=== PATIENT | female | born 1990 | race Caucasian/White ===

== ENCOUNTER 2018-07-18 13:25 | Outpatient (CLI) | payer MEDICAID ==
[~2018-07-18] VITALS: Ht 152.4 cm; Wt 87.2 kg
[2018-07-18 13:56] VITALS: Ht 152.4 cm; Wt 87.2 kg
[2018-07-18 13:59] VITALS: BP 121/61; PULSE 87; RESP 16
--- NOTE | 2018-07-18 14:11 | PN ---
Triage Information Date/Time 07/18/2018 Reason for visit: she reports good FM. she denies contractions, visual changes, headache, RUQ pain, LOF per vagina or vaginal bleeding. Weeks of Gestation 36.4 /Para G1 Diabetes: none Hypertention: none Objective Vital Signs Date Temp Pulse Resp B/P (MAP) Pulse Ox O2 O2 Flow FiO2 Time Delivery Rate 07/18/18 98.7 87 16 121/61 Room Air 13:59 (81) Contractions: None Exam NAD Abd: soft, gravid, not tender Ext: no edema Disposition: Discharge Assessment/Plan IUP at 36.4 weeks r/o IUGR plan is NST and MONICA Guzman MD Jul 18, 2018 14:11
== END 2018-07-18 15:55 | disposition home or self-care (01) ==
LOC: OBT 13:25 → L-D 13:27 → OBT 15:55
PROVIDERS: ATTEND Specialist
DX: O36.5930 Maternal care for other known or suspected poor fetal growth, third trimester, not applicable or unspecified (principal); Z3A.36 36 weeks gestation of pregnancy
CPT/HCPCS: 76815; 76818; Z7500; G0463

== ENCOUNTER 2018-08-02 08:26 | Inpatient (IN) | payer MEDICAID ==
[~2018-08-02] VITALS: Ht 152.4 cm; Wt 87.0 kg
[2018-08-02 08:40] VITALS: Ht 152.4 cm; Wt 87.0 kg
[2018-08-02 08:46] VITALS: BP 122/79
[2018-08-02] MEDS ORDERED: PREN1TAB71 PO (08:50)
--- NOTE | 2018-08-02 08:53 | HP ---
Date/Time of Note Date/Time of Note DATE: 08/02/18 TIME: 08:48 OB - History Hx of Present Free Text/Dictation 28 YO G1 with EDC 08/11/2018 with IUP at 38.5 weeks who reported to Triage due to painful contractions and small amount of spotting. she denies LOF per vagina. she reports good FM. she denies headache, visual changes or RUQ pain. Care: Good Care Ultrasounds: Normal mid trimester US Obstetrical Complications: None Medical Complications: None Past Family/Social History * Past Medical, Surgical, Family and Obstetric Histories reviewed from chart. OB Admission Exam Vital Signs Vital Signs Vital Signs Date Temp Pulse Resp B/P (MAP) Pulse Ox O2 O2 Flow FiO2 Time Delivery Rate 08/02/18 97.6 122/79 08:46 (93) Physical Exam HEENT: WNL Heart: Rhythm Normal Lungs: Clear, Equal Abdomen: WNL Extremities: Normal Reflexes: Normal Cervical Dilatation: 1cm Effacement: 50% Station: -3 Membranes: Intact OB Assessment/Plan Other Assessment: IUP at 38.5 weeks small amount of spotting is due to cervical change, but it does not seem like she is labor. patient is motivated to have and she would like to be admitted in active labor. Plan: Expectant Management Other plan: will observe and reexamine cervix. if n significant change then may be discharged with labor precautions and [facility] Sono MONICA LUX MD Aug 02, 2018 08:53
[2018-08-02] MEDS ORDERED: IBUPROFEN 600 MG TAB PO PRN (11:30)
[2018-08-02] MEDS ORDERED: BUTORPHANOL 2 MG INJ IV PRN (11:30)
[2018-08-02] MEDS ORDERED: CARBOPROST 250 MCG INJ IM PRN (11:30)
[2018-08-02] MEDS ORDERED: MISOPROSTOL 200 MCG TAB PR PRN (11:30)
[2018-08-02] MEDS ORDERED: METHYLERGONOVINE 0.2 MG INJ IM PRN (11:30)
[2018-08-02] MEDS ORDERED: LIDOCAINE 1% (MPF) 30 ML INJ INJ PRN (11:30)
[2018-08-02] MEDS ORDERED: OXYTOCIN 30 UNITS/LR 500 ML IV SCH ×2 (11:30)
[2018-08-02] MEDS ORDERED: OXYTOCIN 30 UNITS/LR 500 ML IV PRN (11:30)
[2018-08-02] MEDS: LACTATED RINGER'S 1,000 ML IV SCH ×4 (11:43→23:43)
[2018-08-02] MEDS: MISOPROSTOL 50 MCG CAPSULE PO SCH ×2 (12:04→16:01)
--- NOTE | 2018-08-02 20:13 | PREAC ---
Date/Time of Note Date/Time of Note DATE: 08/02/18 TIME: 20:13 Anesthesia Eval and Record Evaluation Time Pre-Procedure Interview DATE: 08/02/18 TIME: 20:13 Age 28 Sex female NPO: 8 hrs Preoperative diagnosis labor pain Planned procedure labor epidural Past Medical History Past Medical History: None Surgery & Anesthesia Issues No known issue Meds Anticoagulation: No Beta Benjamín within 24 hr: No Reason Beta Benjamín not given: Pt. not on B-Benjamín Reported Medications Vit No.130/Iron/FA ( Tablet) 1 Each Tablet, 1 EACH PO 08/02/18 Current Medications Lactated Ringer's 1,000 ml @ 125 mls/hr Q8H IV Last administered on 08/02/18at 19:59; Admin Dose 125 MLS/HR; Start 08/02/18 at 11:13 Butorphanol Tartrate (Stadol) 2 mg Q2H PRN IV .PAIN; Start 08/02/18 at 11:30 Lidocaine (Xylocaine 1% (Mpf)) 30 ml ONCE PRN INJ .EPISIOTOMY; Start 08/02/18 at 11:30 Oxytocin/Lactated Ringer's 500 ml @ 500 mls/hr ONCE POST IV ; Start 08/02/18 at 11:30 Oxytocin/Lactated Ringer's 500 ml @ 125 mls/hr POST IV ; Start 08/02/18 at 11:30 Ibuprofen (Motrin) 600 mg ONCE PRN PO .PAIN 1-5; Start 08/02/18 at 11:30 Oxytocin/Lactated Ringer's 500 ml @ 0 mls/hr ONCE PRN IV .VAGINAL BLEEDING; Start 08/02/18 at 11:30 Methylergonovine Maleate (Methergine) 0.2 mg ONCE PRN IM .VAGINAL BLEEDING; Start 08/02/18 at 11:30 Carboprost Tromethamine (Hemabate) 250 mcg ONCE PRN IM .VAGINAL BLEEDING; Start 08/02/18 at 11:30 Misoprostol (Cytotec) 1,000 mcg ONCE PRN FL .VAGINAL BLEEDING; Start 08/02/18 at 11:30 Misoprostol (Cytotec 50 Mcg Capsule) 50 mcg Q4 PO Last administered on 08/02/18at 16:01; Admin Dose 50 MCG; Start 08/02/18 at 13:00 Meds reviewed: Yes Allergies Coded Allergies: No Known Drug Allergies (Verified Allergy, Unknown, 08/02/18) Allergies Reviewed: Yes Labs/Studies Labs Reviewed: Reviewed by anesthesiologist Result Diagram: 08/02/18 1106 Laboratory Tests 08/02/18 11:06 Blood Bank Test 08/02/18 11:06 Antibody Screen NEGATIVE Blood Type O POSITIVE Rh Immune Globulin Candidate NO test: Positive Pre-procedure Exam Last vitals Vital Signs Date Temp Pulse Resp B/P (MAP) Pulse Ox O2 O2 Flow FiO2 Time Delivery Rate 08/02/18 97.6 122/79 08:46 (93) Airway: Adequate mouth opening, Adequate thyromental dist Mallampati: Mallampati III Teeth: Normal Lung: Normal Heart: Normal ASA Physical Status ASA physical status: 2 Emergency: None Planned Anesthetic Neuraxial: Epidural Planned Pain Management Epidural, Parenteral pain med Pre-operative Attestations Prior to commencing anesthesia and surgery, the patient was re-evaluated, there was verification of: *The patient's identity *The results of appropriate recent lab work and preoperative vital signs *The above evaluation not changing prior to induction *Anesthetic plan, risk benefits, alternative and complications discussed with patient/family; questions answered; patient/family understands, accepts and wishes to proceed. CARMEN CINTRON MD Aug 02, 2018 20:13
[2018-08-02] MEDS ORDERED: HYDROmorphONE 0.5 MG/0.5 ML SYG IV PRN ×2 (20:30)
[2018-08-02] MEDS ORDERED: ZOLPIDEM 5 MG TAB PO PRN (20:30)
[2018-08-02] MEDS ORDERED: ONDANSETRON 4 MG INJ IV PRN (20:30)
[2018-08-02] MEDS ORDERED: KETOROLAC 30 MG INJ IV PRN (20:30)
[2018-08-02] MEDS ORDERED: DIPHENHYDRAMINE 50 MG INJ IV PRN (20:30)
[2018-08-02] MEDS ORDERED: NALOXONE (0.4 MG/ML) INJ IV PRN (20:30)
--- NOTE | 2018-08-02 23:12 | PAC ---
Date/Time of Note Date/Time of Note DATE: 08/02/18 TIME: 23:12 Post-Anesthesia Notes Post-Anesthesia Note Last documented vital signs Vital Signs Date Temp Pulse Resp B/P (MAP) Pulse Ox O2 O2 Flow FiO2 Time Delivery Rate 08/02/18 97.6 122/79 08:46 (93) Activity: WNL Respiratory function: WNL Cardiovascular function: WNL Mental status: Baseline Pain reasonably controlled: Yes Hydration appropriate: Yes Nausea/Vomiting absent: Yes CARMEN CINTRON MD Aug 02, 2018 23:12
[2018-08-03] MEDS ORDERED: OXYTOCIN 30 UNITS/LR 500 ML IV SCH (02:00)
[2018-08-03] MEDS: FENTAnyl 2MCG/ML-ROPIV 0.2% 100 ML BAG EPI SCH ×2 (04:28→09:50)
[2018-08-03] MEDS ORDERED: DEXTROSE 5%-LR 1,000 ML IV PRN (06:00)
[2018-08-03] MEDS: LACTATED RINGER'S 1,000 ML IV SCH (07:17)
[2018-08-03] MEDS: LACTATED RINGER'S 1,000 ML IV* SCH ×2 (15:24→20:26)
--- NOTE | 2018-08-03 15:27 | LDN ---
Date/Time of Note Date/Time of Note DATE: 08/03/18 TIME: 15:25 Delivery Summary s/p of viable male infant with 2nd degree perineal laceration repaired in normal fashion with 3-0 Vicryl. retained placenta was removed manually. Placenta Delivered: Spontaneously Meconium: none Episiotomy: No Perineal laceration: 2 Anesthesia type: Epidural Estimated blood loss: 400 Sponge & Needle done & correct: Yes All needle counts correct: Yes Any foreign bodies felt in the: No Infant Delivery Information Sex Infant Sex: male Apgars 1 Minute: 8 5 Minute: 9 Suctioning Nose & mouth suctioned at pauline: Yes Delee suction performed: Yes Umbilical Cord Umbilical cord with: 3 Vessels Cord presentations: no nuchal cord Nuchal cord present X: 0 Cord Blood was obtained: Yes Mother & Baby Disposition Disposition Mom & Baby to Maternity; Good: Yes MONICA RICHARDSON MD Aug 03, 2018 15:27
[2018-08-03] MEDS ORDERED: DIPHENHYDRAMINE 50 MG INJ IV PRN (15:30)
[2018-08-03] MEDS ORDERED: MISOPROSTOL 200 MCG TAB PR PRN (15:30)
[2018-08-03] MEDS ORDERED: OXYTOCIN 30 UNITS/LR 500 ML IV PRN (15:30)
[2018-08-03] MEDS ORDERED: DIPHENHYDRAMINE 25 MG CAP PO PRN (15:30)
[2018-08-03] MEDS ORDERED: CEFAZOLIN 2 GM/50 ML (PMX) 50 ML IVPB ONE (15:30)
[2018-08-03] MEDS ORDERED: ONDANSETRON 4 MG INJ IV PRN (15:30)
[2018-08-03] MEDS ORDERED: CARBOPROST 250 MCG INJ IM PRN (15:30)
[2018-08-03] MEDS ORDERED: HYDROCODONE/APAP (5/325) TAB PO PRN ×2 (15:30)
[2018-08-03] MEDS ORDERED: LANOLIN HPA 1 PKT TOP PRN (15:30)
[2018-08-03] MEDS ORDERED: ONDANSETRON 4 MG TAB PO PRN (15:30)
[2018-08-03] MEDS ORDERED: DIBUCAINE 1% 30 GM OINT TOP PRN (15:30)
[2018-08-03] MEDS ORDERED: NA PHOSPHATE/BIPHOS 133 ML ENEMA PR PRN (15:30)
[2018-08-03] MEDS ORDERED: SENNA/DOCUSATE NA (8.6MG/50MG) TAB PO PRN (15:30)
[2018-08-03] MEDS ORDERED: MAGNESIUM HYDROXIDE 30ML CUP PO PRN (15:30)
[2018-08-03] MEDS: IBUPROFEN 600 MG TAB PO SCH ×2 (15:49→23:50)
[2018-08-03 16:40] VITALS: BP 120/55; PULSE 113; RESP 18
[2018-08-03 16:55] VITALS: BP 121/60; PULSE 106; RESP 19
[2018-08-03 17:15] VITALS: BP 143/66; PULSE 93; RESP 20
[2018-08-03 18:15] VITALS: BP 134/79; PULSE 97; RESP 20
[2018-08-03 19:50] VITALS: BP 117/65; PULSE 82; RESP 20
[2018-08-03] MEDS: BENZOCAINE 20% 56 ML SPRAY TOP PRN (20:25)
[2018-08-03] MEDS: WITCH HAZEL/GLYCERIN PAD PR PRN (20:25)
[2018-08-03] MEDS: SENNA/DOCUSATE NA (8.6MG/50MG) TAB PO SCH (20:25)
[2018-08-04 00:08] VITALS: BP 105/62; PULSE 78; RESP 19
[2018-08-04] MEDS: LACTATED RINGER'S 1,000 ML IV SCH ×3 (03:13→19:13)
[2018-08-04 04:35] VITALS: BP 107/59; PULSE 89; RESP 19
[2018-08-04] MEDS: IBUPROFEN 600 MG TAB PO SCH ×4 (05:34→23:32)
[2018-08-04] MEDS: LACTATED RINGER'S 1,000 ML IV* SCH ×3 (07:24→23:24)
[2018-08-04 08:00] VITALS: BP 108/55; PULSE 77; RESP 20
--- NOTE | 2018-08-04 09:46 | DS ---
Date/Time of Note Date/Time of Note DATE: 08/04/18 TIME: 09:45 Obstetrical Discharge Record Final Diagnosis Final Diagnosis: Term delivered Vaginal Delivery Obstetrical Delivery: Spontaneous Complications Augmentation: Yes Induction: Yes Rupture of Membranes: No Condition on Discharge Physical Assessment Voiding: Yes Bowel Movement: Yes Breast: Soft, non-tender, Filling Fundus: Firm Abdomen and Incision: soft, not tender Calf Tenderness: No Patient Condition: Good MONICA RICHARDSON MD Aug 04, 2018 09:46
[2018-08-04] MEDS: SENNA/DOCUSATE NA (8.6MG/50MG) TAB PO SCH ×2 (10:05→21:16)
[2018-08-04 12:00] VITALS: BP 102/56; PULSE 68; RESP 19
[2018-08-04 16:00] VITALS: BP 123/65; PULSE 68; RESP 20
[2018-08-04 19:30] VITALS: BP 115/66; PULSE 83; RESP 19
[2018-08-05] MEDS: LACTATED RINGER'S 1,000 ML IV SCH (03:13)
[2018-08-05 04:00] VITALS: BP 103/62; PULSE 82; RESP 20
[2018-08-05] MEDS: IBUPROFEN 600 MG TAB PO SCH ×2 (05:38→13:08)
[2018-08-05] MEDS: LACTATED RINGER'S 1,000 ML IV* SCH (07:24)
[2018-08-05 09:00] VITALS: BP 100/57; PULSE 87; RESP 17
[2018-08-05] MEDS ORDERED: VARICELLA VACCINE LIVE/PF 1,350 UNIT/0.5 ML ML SC* ONE (09:00)
[2018-08-05] MEDS ORDERED: DIPHTH/TET/ACEL PERTUSS (ADULT) 0.5 ML VIAL IM* ONE (09:00)
[2018-08-05] MEDS ORDERED: MEASLES,MUMPS,RUBELLA VACCINE INJ SC* ONE (09:00)
[2018-08-05] MEDS: SENNA/DOCUSATE NA (8.6MG/50MG) TAB PO SCH (09:26)
[2018-08-05] MEDS: WITCH HAZEL/GLYCERIN PAD PR PRN (14:44)
[2018-08-05] MEDS: BENZOCAINE 20% 56 ML SPRAY TOP PRN (14:44)
--- NOTE | 2018-08-08 11:27 | DELSUM ---
Delivery Summary A-C Datetime Report Generated by CPN: 08/08/2018 11:20 DELIVERY PERSONNEL Principal Network Architect: Duvo, Cathy MATERNAL INFORMATION Delivery Anesthesia: Epidural Medications in Delivery: 30 units pitocin in 500LR Delivery QBL (ml): 425 Placenta Cultured: No Maternal Complications: None RN Comments: IUGR LABOR SUMMARY EDC: 08/11/2018 00:00 No. Babies in Womb: 0 Attempted: No Labor Anesthesia: Epidural LABOR INFORMATION Reason for Induction: IUGR Onset of Labor: 08/02/2018 19:03 Complete Dilatation: 08/03/2018 12:51 Cervical Ripening Agents: Cytotec @ Oxytocin: Induction Group B Beta Strep: Negative Antibiotics # of Doses: 0 Steroids Given: None Reason Steroids Not Administered: Not Applicable MEMBRANES Membranes Rupture Method: Artificial Rupture of Membranes: 08/03/2018 10:42 Length of Rupture (hr): 4.20 Amniotic Fluid Color: Clear Amniotic Fluid Amount: Moderate Amniotic Fluid Odor: None STAGES OF LABOR Stage 1 hr: 17 Stage 1 min: 48 Stage 2 hr: 2 Stage 2 min: 3 Stage 3 hr: 0 Stage 3 min: 26 Total Time in Labor hr: 20 Total Time in Labor min: 17 VAGINAL DELIVERY Episiotomy: None Laceration Extension: Second Degree Laceration Type: Perineal; Vaginal Laceration Repair: Yes Initial Vag Sponge Count: 10 Final Vag Sponge Count: 10 Initial Vag Sharps Count: 1 Final Vag Sharps Count: 2 Sponge Count Correct: Yes; Vaginal Sweep Performed Sharps Count Correct: Yes BABY A INFORMATION Delivery Date/Time: 08/03/2018 14:54 Method of Delivery: Vaginal Born in Route : No : N/A Forceps: N/A Vacuum Extraction: N/A Shoulder Dystocia : No SHOULDER DYSTOCIA BABY A Infant Delivery Date/Time: 08/03/2018 14:54 PRESENTATION/POSITION BABY A Presentation: Cephalic Cephalic Presentation: Vertex Vertex Position: Left Occipital Anterior Breech Presentation: N/A PLACENTA INFORMATION BABY A Placenta Delivery Time : 08/03/2018 15:20 Placenta Method of Delivery: Manual Removal Placenta Status: Delivered SCORES BABY A Heart Rate 1 min: >100 bpm Resp Effort 1 min: Good Cry Reflex Irritability 1 min: Cough/Sneeze/Pulls Away Muscle Tone 1 min: Active Motion Color 1 min: Blue/Pale Resuscitation Effort 1 min: Tactile Stimulation SCORE 1 MIN: 8 Heart Rate 5 min: >100 bpm Resp Effort 5 min: Good Cry Reflex Irritability 5 min: Cough/Sneeze/Pulls Away Muscle Tone 5 min: Active Motion Color 5 min: Body [place], Extremit Blue Resuscitation Effort 5 min: Tactile Stimulation SCORE 5 MIN: 9 INFORMATION BABY A Gestational Age at Delivery: 38.6 Gestational Status: Early Term- 37- 38.6 Weeks Outcome : Liveborn Infant Condition : Stable Infant Sex: Female IDENTIFICATION/MEDS BABY A ID Band Number: [id number] ID Band Location: Right Leg; Left Arm Sensor Applied: Yes Sensor Number: [id number] Sensor Location : Cord Clamp Vitamin K Given : Not Given Erythromycin Given: Not Given WEIGHT/LENGTH BABY A Infant Birthweight (gm): 2590 Infant Weight (lb): 5 Infant Weight (oz): 11 Infant Length (in): 18.50 Length (cm): 46.99 CORD INFORMATION BABY A No. Cord Vessels: 3 Nuchal Cord : N/A Cord Blood Taken: Yes Infant Suction: Mouth; Nose ASSESSMENT BABY A Infant Complications: Multiple Late Decels; Multiple Variable Decels Physical Findings at Delivery: Caput Succedaneum; Molding of the Head Infant Respirations: Appears Normal Timber Appraiser/ALS Called : Yes Infant Care By: Tonia BANUELOS RN Transferred To: Remains with Mother
== END 2018-08-05 17:17 | disposition home or self-care (01) | DRG 807 ==
LOC: OBT 08:26 → L-D 08:27 → OBT 10:35 → L-D 11:02 → PP1 08-03 17:24
PROVIDERS: ADMIT Specialist; ATTEND Specialist
PROC: 10E0XZZ Delivery of Products of Conception, External Approach (ICD-10-PCS; principal; 2018-08-02)
PROC: 0KQM0ZZ Repair Perineum Muscle, Open Approach (ICD-10-PCS; 2018-08-02)
PROC: 3E033VJ Introduction of Other Hormone into Peripheral Vein, Percutaneous Approach (ICD-10-PCS; 2018-08-02)
DX: O70.1 Second degree perineal laceration during delivery (principal); Z37.0 Single live birth; Z3A.38 38 weeks gestation of pregnancy
CPT/HCPCS: 62319; 76815; 76818; 85025; 85610; 85730; 86592; 86850; 86900; 86901; 90716; 99464; G0463; J0690; J2210; J2590; J3010; J7120